=== PATIENT | male | born 1970 | race African-American/Black ===

== ENCOUNTER 2020-11-20 22:28 | Emergency (ER) | payer OTHER ==
[~2020-11-20] VITALS: Ht 185.4 cm; Wt 77.1 kg
[2020-11-20 23:05] LABS: ABSOLUTE NEUTROPHILS 8.7 thou/uL (1.4-8.2); BASOPHILS 0.6 % (0.0-2.0); HEMATOCRIT 44.8 % (42.0-52.0); HEMOGLOBIN 14.9 gm/dL (14.0-18.0); LYMPHOCYTES 23.8 % (24.0-44.0); MCH 32.2 pg (26.0-34.0); MCHC 33.2 g/dL (28.0-37.0); MCV 96.9 fL (80.0-100.0); MONOCYTES 3.9 % (1.0-8.0); PLATELET COUNT 228 thou/uL (150-400); POLYS 69.7 % (36.0-66.0); RBC 4.62 mil/uL (4.50-6.00); WBC 12.5 thou/uL (4.0-11.0)
[2020-11-20 23:26] LABS: CALCIUM 8.1 mg/dL (8.5-10.1); CREATININE 0.7 mg/dL (0.7-1.3)
[2020-11-20 23:32] LABS: ALBUMIN 4.7 g/dL (3.4-5.0); MAGNESIUM 2.3 mg/dL (1.8-2.4); TOTAL BILIRUBIN 0.4 mg/dL (0.2-1.0); TOTAL PROTEIN 8.2 g/dL (6.4-8.2)
[2020-11-21 04:00] VITALS: BP 118/84
[2020-11-21] MEDS ORDERED: DOXYCYCLINE 10100 MG PO (04:13)
--- NOTE | 2020-11-22 07:38 | EKG ---
[place] [address] [address] [facility] [place] [address] ELECTROCARDIOGRAM REPORT Name: JAH GONZALEZ Room #: DEP [facility] [id number] Admission: 11/20/20 Attend Phys: Discharge: 11/21/20 Date of : 74 Report #: [id number] [facility] ED Test Date: 2020-11-20 Test Time: 22:50:03 Pat Name: JAH GONZALEZ Department: Room: Gender: [employer]ile [employer] Helper: : 1970 Requested By: Jaswant Chan Order Number: [id number] MD: Jostin Humphrey Measurements Intervals [place] Rate: 90 P: 41 WY: 172 QRS: 43 QRSD: 80 T: 25 QT: 340 QTc: 416 Interpretive Statements Sinus rhythm Probable left atrial enlargement Borderline T wave abnormalities No previous ECG available for comparison Electronically Signed On 11-22-2020 7:38:08 COAL SCREENER by Jostin Humphrey [email or web address] <ELECTRONICALLY SIGNED> By: Jostin Humphrey MD, [facility] 11/22/20 0738 2250 2250 Jostin Humphrey MD, FACC /EPI
== END 2020-11-21 04:44 | disposition home or self-care (01) ==
LOC: ER 22:28
PROVIDERS: Emergency Medicine
DX: F10.129 Alcohol abuse with intoxication, unspecified (principal); Z88.0 Allergy status to penicillin; Y90.8 Blood alcohol level of 240 mg/100 ml or more